=== PATIENT | female | born 1955 | race Caucasian/White ===

== ENCOUNTER → 2017-02-27 | Day surgery (SDC) | payer BC ==
[~2017-02-27] MED LIST: CHOL200074 PO; HYDROmorphone 2 MG/ML VIAL IV PRN; IV RINGERS,LACTATED 1000ML 1,000 ML IV SCH; KRIL500C PO; LEVO50TA5 PO; LIDOCAINE 1% 1 ML SYRINGE. ID PRN; LIDOCAINE 2% PF Vial for OR 5 ML VIAL. ONE; MORPHINE SULFATE 2 MG/ML DISP.SYRIN. IV PRN; ONDANSETRON PF 4 MG/2 ML VIAL. IV PRN; PROCHLORPERAZINE 10 MG/2 ML VIAL. IV PRN; PROPOFOL 20 ML IV ONE; RALO60TA PO; fentaNYL PF VIAL 100 MCG/2 ML VIAL IV PRN
[2017-02-27 12:42] VITALS: BP 120/58
== END | disposition home or self-care (01) ==
LOC: ENDOS 10:51
PROVIDERS: ATTEND Internal Medicine Gastroenterology
DX: K29.50 Unspecified chronic gastritis without bleeding (principal); E78.00 Pure hypercholesterolemia, unspecified; I10 Essential (primary) hypertension; E03.9 Hypothyroidism, unspecified; Z82.49 Family history of ischemic heart disease and other diseases of the circulatory system; Z80.0 Family history of malignant neoplasm of digestive organs; Z90.710 Acquired absence of both cervix and uterus; Z86.39 Personal history of other endocrine, nutritional and metabolic disease
CPT/HCPCS: 43235; J2704

== ENCOUNTER → 2020-06-09 | Outpatient (CLI) | payer SELFPAY ==
[2017-02-27 12:42] VITALS: BP 120/58
[~2020-06-09] MED LIST changes: -HYDROmorphone 2 MG/ML VIAL IV PRN; -IV RINGERS,LACTATED 1000ML 1,000 ML IV SCH; -LIDOCAINE 1% 1 ML SYRINGE. ID PRN; -LIDOCAINE 2% PF Vial for OR 5 ML VIAL. ONE; -MORPHINE SULFATE 2 MG/ML DISP.SYRIN. IV PRN; -ONDANSETRON PF 4 MG/2 ML VIAL. IV PRN; -PROCHLORPERAZINE 10 MG/2 ML VIAL. IV PRN; -PROPOFOL 20 ML IV ONE; -fentaNYL PF VIAL 100 MCG/2 ML VIAL IV PRN
--- NOTE | 2020-06-09 10:10 | KCIC ---
Examination: CT CALCIUM SCORING History: Reason: Cardiovascular screeening, family hx. heart disease / Spl. Instructions: Previous Calcium score 02/2014, score of 0, report scanned into PACS Comparison/Correlation: None Technique: With retrospective electrocardiogram gating axial reconstructed noncontrast images of the chest at the level of the coronary arteries was performed. The upper thorax was not fully included for purposes of this exam. Images were post processed on workstation and calcium score calculated using the modified Agatston Janowitz protocol. Findings: Calcium score Left main coronary artery 0 Left anterior descending artery 0 Left circumflex artery 0 Right coronary artery 0 Total coronary calcium score is 0. Calcified granulomas in the left lung base. Bronchial wall calcification is seen. Partially visualized upper abdomen is unremarkable. IMPRESSION: Total calcium score of 0 is present. Low likelihood of coronary artery obstruction. Low cardiovascular risk. Continue "heart healthy" lifestyle habits. RS Compliance Statement: One or more of the following individualized dose reduction techniques were utilized for this examination: 1. Automated exposure control 2. Adjustment of the mA and/or kV according to patient size 3. Use of iterative reconstruction technique Electronically signed by: Carson Hernandez MD (06/09/2020 10:08 AM) [id number]
== END | disposition home or self-care (01) ==
LOC: KCIC CT 09:00
PROVIDERS: ATTEND Family Medicine
DX: Z13.6 Encounter for screening for cardiovascular disorders (principal); E78.5 Hyperlipidemia, unspecified; R07.89 Other chest pain
CPT/HCPCS: 75571